=== PATIENT | female | born 1960 | race Two or more races ===

== ENCOUNTER 2023-10-07 06:07 | Emergency (ER) | payer OTHER ==
[~2023-10-07] VITALS: Ht 144.8 cm; Wt 86.4 kg
[2023-10-07 06:15] VITALS: BP 158/80; RESP 18; O2SAT 95
[2023-10-07 06:53] VITALS: PULSE 65
== END 2023-10-07 10:45 | disposition left against medical advice (07) ==
LOC: ER 06:07
DX: R03.0 Elevated blood-pressure reading, without diagnosis of hypertension (principal); R42 Dizziness and giddiness; Z53.21 Procedure and treatment not carried out due to patient leaving prior to being seen by health care provider
CPT/HCPCS: 93005